=== PATIENT | male | born 1975 | race American Indian/Alaskan Native ===

== ENCOUNTER 2018-12-24 17:32 | Emergency (ER) | payer MEDICAID ==
[2018-12-24] MEDS ORDERED: Diazepam 5 MG Tab PO ONE (18:33)
[2018-12-24] MEDS ORDERED: traMADol 50 MG Tab PO ONE (18:33)
[2018-12-24] MEDS ORDERED: Lidocaine 5% 700 MG Patch TOP ONE (18:34)
[2018-12-24] MEDS ORDERED: Acetaminophen 500 MG Tab PO ONE (18:34)
--- NOTE | 2018-12-24 18:40 | EDM.PDOC ---
ED HPI GENERAL MEDICAL PROBLEM - General Chief Complaint: Back Pain or Injury Stated Complaint: LOWER BACK PAIN Time Seen by Provider: 12/24/18 18:25 Source of Information: Reports: Patient, Old Records History Limitations: Reports: No Limitations - History of Present Illness INITIAL COMMENTS - FREE TEXT/NARRATIVE: 43 yo male was working under his car today and when he went to get up he noted R low back pain. He went into his home and took ibuprofen 800 mg and a hot bath and has not gotten any relief. He recalls no acute injury. He has no bowel or bladder incontinence. He has some mild equal tingling in both legs. Pain is worse with movement. In the past he saw a chiropractor for his back, but he has since retired. 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 Lower Back Pain Score (Numeric/FACES): 10 - Related Data Allergies Allergy/AdvReac Type Severity Reaction Status Date / Time No Known Allergies Allergy Verified 12/24/18 17:50 Home Meds: Home Meds NK [No Known Home Meds] 12/24/18 [History] Past Medical History HEENT History: Reports: Impaired Vision - Past Surgical History Head Surgeries/Procedures: Reports: None Dermatological Surgical History: Reports: None Social & Family History - Tobacco Use Smoking Status *Q: Current Every Day Smoker Years of Tobacco use: 1 Packs/Tins Daily: 0.5 Used Tobacco, but Quit: No - Caffeine Use Caffeine Use: Reports: Coffee, Energy Drinks, Soda, Tea - Recreational Drug Use Recreational Drug Use: No ED ROS GENERAL - Review of Systems Review Of Systems: See Below Constitutional: Reports: No Symptoms HEENT: Reports: No Symptoms Respiratory: Reports: No Symptoms Cardiovascular: Reports: No Symptoms GI/Abdominal: Reports: No Symptoms : Reports: No Symptoms Musculoskeletal: Reports: Back Pain (low) Skin: Reports: No Symptoms Neurological: Reports: Tingling (mild in both legs) Psychiatric: Reports: No Symptoms ED EXAM,LOWER BACK PAIN/INJURY - Physical Exam Exam: See Below Exam Limited By: No Limitations General Appearance: Alert, WD/WN, Mild Distress Eye Exam: Bilateral Eye: Normal Inspection Ears: Hearing Grossly Normal Nose: Normal Inspection, No Blood Throat/Mouth: Normal Voice, No Airway Compromise Head: Atraumatic, Normocephalic Neck: Normal Inspection Back Exam: Normal Inspection, Muscle Spasm (R paraspinous muscles of lumbar spine.), Paraspinal Tenderness (R lumbar). No: Vertebral Tenderness Extremities: Normal Inspection, Normal Range of Motion, Non-Tender, No Pedal Edema Neurological: Alert, Normal Mood/Affect, CN II-XII Intact, No Motor/Sensory Deficits, Oriented x 3 DTR - Lower Extremities: 1+: Knee (R), Knee (L), Ankle (R), Ankle (L) Psychiatric: Normal Affect, Normal Mood Skin Exam: Warm, Dry, Intact, Normal Color, No Rash Course - Vital Signs Text/Narrative:: States minimal pain relief with tx so far. Wants to go home. Last Recorded V/S: Last Vital Signs Temp 36.8 C 12/24/18 17:55 Pulse 78 12/24/18 17:55 Resp 16 12/24/18 17:55 BP 155/92 H 12/24/18 17:55 Pulse Ox 94 L 12/24/18 17:55 - Orders/Labs/Meds Meds: Medications Discontinued Medications Generic Name Dose Route Start Last Admin Trade Name Josh PRN Reason Stop Dose Admin Acetaminophen 1,000 mg 12/24/18 18:34 12/24/18 18:55 Tylenol Extra Strength PO 12/24/18 18:35 1,000 mg ONETIME ONE Administration Diazepam 10 mg 12/24/18 18:33 12/24/18 18:56 Valium. PO 12/24/18 18:34 10 mg ONETIME ONE Administration Lidocaine 700 mg 12/24/18 18:34 12/24/18 18:56 Lidoderm 5% TOP 12/24/18 18:35 700 mg ONETIME ONE Administration Tramadol HCl 100 mg 12/24/18 18:33 12/24/18 18:55 Ultram PO 12/24/18 18:34 100 mg ONETIME ONE Administration Departure - Departure Time of Disposition: 19:17 Disposition: Home, Self-Care 01 Condition: Fair Clinical Impression: Acute low back pain Qualifiers: Back pain laterality: right Sciatica presence: without sciatica Qualified Code( s): M54.5 - Low back pain - Discharge Information *PRESCRIPTION DRUG MONITORING PROGRAM REVIEWED*: No *COPY OF PRESCRIPTION DRUG MONITORING REPORT IN PATIENT FRIDA: No Instructions: Acute Back Pain, Adult Referrals: Kolton Shepherd MD [Primary Care Provider] - Forms: ED Department Discharge Additional Instructions: Continue Ibuprofen as currently, no more than 800 mg every 6 hrs with food. Acetaminophen 1000 mg every 6 hrs as needed. Massage to area of pain with [employer]. No lifting, bending or twisting. See you doctor tomorrow, consider seaking out a new chiropractor to replace the one who retired.
== END 2018-12-24 19:40 | disposition home or self-care (01) ==
LOC: JP.ED 17:32
DX: M54.5 Low back pain (principal); F17.210 Nicotine dependence, cigarettes, uncomplicated
CPT/HCPCS: 99283; A9270

== ENCOUNTER 2022-01-26 00:07 | Emergency (ER) | payer MEDICAID | END 2022-01-26 01:03 | disposition home or self-care (01) | LOC: JP.ED 00:07 | DX: M54.42 Lumbago with sciatica, left side (principal); I10 Essential (primary) hypertension; K21.9 Gastro-esophageal reflux disease without esophagitis; F17.210 Nicotine dependence, cigarettes, uncomplicated | CPT/HCPCS: 99283 ==